=== PATIENT | female | born 1985 | race Caucasian/White ===

== ENCOUNTER → 2020-02-08 | Outpatient (CLI) | payer OTHER | END | disposition home or self-care (01) | LOC: PLD 07:42 → LAB SHORT 07:42 | DX: N95.0 Postmenopausal bleeding (principal) | CPT/HCPCS: 88305 ==

== ENCOUNTER → 2023-01-15 | Outpatient (CLI) | payer OTHER | LOC: LAB SHORT 12:28 → PLD 12:28 | DX: D17.23 Benign lipomatous neoplasm of skin and subcutaneous tissue of right leg (principal) | CPT/HCPCS: 88305 ==